=== PATIENT | male | born 1950 | race Caucasian/White ===

== ENCOUNTER 2018-01-30 08:14 | Outpatient (CLI) | payer OTHER ==
--- NOTE | 2018-01-30 11:27 | ULT ---
THYROID ULTRASOUND: INDICATIONS: Thyroid lesions identified on a mobile unit thyroid ultrasound evaluation five months ago. The image s are unavailable. FINDINGS: The right thyroid lobe measures 2.8 x 2.3 x 1.7 cm. The left thyroid lobe measures 2.9 x 2.4 x 1.5 c m. The thyroid isthmus measures 0.33 cm. There is a small hypoechoic, solid lesion involving the medial left mid thyroid lobe, measuring 4 mm. A slightly larger, hypoechoic solid nodule is seen within the right mid thyroid lobe, measuring 6 m m. A 2 mm thyroid nodule is seen within the anterior right mid thyroid lobe. IMPRESSION: Small, subcentimeter, hypoechoic nodules. These are consistent with TIRADS 4 lesions but since these lesions are below 1 cm in size, no ultrasound followup is recommended. POS: [facility]UMBLE
== END 2018-01-30 08:15 | disposition home or self-care (01) ==
LOC: MADULT 08:14
PROVIDERS: ATTEND Family Medicine
DX: R94.6 Abnormal results of thyroid function studies (principal); E04.2 Nontoxic multinodular goiter
CPT/HCPCS: 76536

== ENCOUNTER 2018-08-12 10:31 | Outpatient (CLI) | payer OTHER, MEDICARE ==
--- NOTE | 2018-08-12 11:21 | RAD ---
TWO VIEWS LEFT HIP: History: Chronic left hip pain. FINDINGS: Two views of the left hip shows the patient status post left hip arthroplasty without perihardware ro cency of fracture. No soft tissue swelling is seen. IMPRESSION: Status post left hip arthroplasty without evidence of complication. POS: C
--- NOTE | 2018-08-12 11:23 | RAD ---
FOUR VIEWS LEFT KNEE: History: Chronic left knee pain. FINDINGS: Four views left knee shows moderate tricompartmental joint space narrowing and osteophyte formation s uggestive of osteoarthritis. No knee effusion is seen. There is no evidence of acute fracture or disl ocation. IMPRESSION: Moderate left knee osteoarthritis without acute osseous abnormality. POS: C
== END 2018-08-12 10:32 | disposition home or self-care (01) ==
LOC: MADRAD 10:31
PROVIDERS: ATTEND Family Medicine
DX: M25.552 Pain in left hip (principal); M25.562 Pain in left knee; M17.12 Unilateral primary osteoarthritis, left knee; Z96.642 Presence of left artificial hip joint

== ENCOUNTER 2019-07-11 18:09 | Emergency (ER) | payer OTHER ==
[2019-07-11] MEDS ORDERED: Tetracaine 0.5% OPHTH SOLN/PF 4 ML BOT ONE (18:12)
[2019-07-11] MEDS ORDERED: Neomycin-Polymyxin-Hc 7.5 ML BOT ONE (18:29)
== END 2019-07-11 18:38 | disposition home or self-care (01) ==
LOC: MADERS 18:09
DX: T65.891A Toxic effect of other specified substances, accidental (unintentional), initial encounter (principal); T26.62XA Corrosion of cornea and conjunctival sac, left eye, initial encounter; T26.61XA Corrosion of cornea and conjunctival sac, right eye, initial encounter; I49.9 Cardiac arrhythmia, unspecified; I10 Essential (primary) hypertension; X10.2XXA Contact with fats and cooking oils, initial encounter; Y92.009 Unspecified place in unspecified non-institutional (private) residence as the place of occurrence of the external cause
CPT/HCPCS: 99283